=== PATIENT | male | born 1950 ===

== ENCOUNTER 2016-09-17 07:30 | Inpatient (IN) | payer MEDICARE ==
[2015-08-11 06:43] VITALS: BMI 28.3
[2016-09-23 07:29] LABS: HEMATOCRIT 46.1 % (42.0-52.0); MEAN CELL VOLUME 77.3 fL (80.0-105.0); MEAN CORPUSCULAR HEMOGLOBIN 25.3 pg (25.0-35.0); MEAN CORPUSCULAR HGB CONC 32.8 g/dl (31.0-37.0); RED CELL DISTRIBUTION WIDTH 14.1 % (11.5-14.5); WHITE BLOOD COUNT 7.8 10^3/ul (4.5-11.0)
[2016-09-23] MEDS ORDERED: Bupivacaine 0.5% Inj(30mL) ONE (07:35)
[2016-09-23] MEDS ORDERED: Iohexol 240 (50 ml) ONE (07:35)
[2016-09-23 07:43] LABS: BLOOD UREA NITROGEN 14 mg/dL (7-21); CALCIUM 10.1 mg/dL (8.4-10.5); CARBON DIOXIDE 24 mmol/L (21-33); CHLORIDE 103 mmol/L (98-107); GFR AFRICAN-AMERICAN > 60; GLUCOSE,RANDOM 93 mg/dL (70-110); POTASSIUM 3.6 mmol/L (3.6-5.0); SODIUM 141 mmol/L (132-148)
[2016-09-23 07:45] LABS: INR 1.08 (0.93-1.08); PARTIAL THROMBOPLASTIN TIME 28.9 Seconds (23.7-30.8)
[2016-09-23] MEDS ORDERED: Midazolam 2 MG/2 ML VIAL ONE (07:50)
[2016-09-23] MEDS ORDERED: Propofol 10 mg/ml Inj (20 ML) ONE (07:50)
[2016-09-23] MEDS ORDERED: Rocuronium 10 mg/ml (5 ml) ONE ×2 (07:51→09:22)
[2016-09-23] MEDS ORDERED: Phenylephrine 10 mg/ml Inj ONE (07:54)
[2016-09-23] MEDS ORDERED: metroNIDAZOLE IV 500 mg/100 ml 500 MG/100 ML BAG ONE (08:13)
[2016-09-23] MEDS ORDERED: Neostigmine Methylsulfate 3mg/3ml Syringe IV ONE (11:24)
[2016-09-23] MEDS ORDERED: Glycopyrrolate 0.2 mg/ml (2ml vial) ONE (11:24)
[2016-09-23] MEDS ORDERED: HYDROmorphone 0.5 mg/0.5 ml ISec IVP PRN (11:32)
[2016-09-23] MEDS ORDERED: Lactated Ringer's 1,000 ML IV SCH (11:32)
[2016-09-23] MEDS ORDERED: HYDROmorphone 0.5 mg/0.5 ml ISec ONE (12:19)
--- NOTE | 2016-09-23 12:52 | OP ---
PROCEDURE DATE: 09/23/2016 PREOPERATIVE DIAGNOSES: 1. Cholelithiasis and cholecystitis. 2. Sessile polyp in the ascending colon. PROCEDURE PERFORMED: 1. Laparoscopic cholecystectomy with intraoperative cholangiogram. 2. Laparoscopic right hemicolectomy. 3. Partial omentectomy. SURGEON: Dr. Harrison BROACHING MACHINE REPAIRER: Dr. Fernandez ANESTHESIOLOGIST: Dr. Salgado ANESTHESIA: General endotracheal anesthesia. ESTIMATED BLOOD LOSS: Minimal. SPECIMEN: Gallbladder with gallstones and right colon. INDICATION: The patient is a 66-year-old male who was seen in the office with complaints of chronic cholecystitis and cholelithiasis. The patient also had a colonoscopy revealing presence of a sessile polyp in the area of the cecum, which could not be excised endoscopically and was scheduled for righ t hemicolectomy. DESCRIPTION OF PROCEDURE: The patient was brought to the operating room and placed on the operating table in supine position. The patient was connected to EKG, blood pressure and pulse oximeter monito rs. The patient then underwent general endotracheal anesthesia and was prepped and draped in usual s terile fashion. First, timeout procedure took place when everybody in the room agreed as to the patient's identity, d iagnosis and procedure to be performed. Dr. Fernandez, who was the anesthesiologists' assistant, was present during the entire case and was assisting me gloriai jyothi with both laparoscopy and anastomosis creation after the laparoscopic procedure was completed an d as well as with closure of the wounds. His presence was essential to safe and prompt performance o f this procedure. The patient was originally placed in the lithotomy position in order to be able to do extreme Trendel enburg and reverse Trendelenburg for the colonoscopic colon resection. First, an incision was made v ertically just above the umbilicus and a Veress needle was inserted through that incision into the ab dominal cavity after the abdominal wall was elevated with 2 towel clips and pneumoperitoneum was obta ined. Once pneumoperitoneum was obtained, a 10-12 mm trocar was inserted through that incision and c areful evaluation of abdominal cavity revealed the presence of distended gallbladder with some adhesi ons of omentum to the gallbladder. I then placed a second 10 mm trocar in the subxiphoid position sl ightly to the left of the midline and proceeded with careful dissection of the infundibulum from the attachments of the omentum. Once this was done, the cystic duct was carefully dissected out and sepa rated from surrounding tissue and so was cystic artery. The cystic duct was clipped proximally. A s mall incision was made on the side of it and a cholangiogram catheter was inserted through that incis ion into the cystic duct. Now under direct visualization and fluoroscopy, the cholangiogram was obta ined, revealing prompt flow of dye into the entire biliary tree and emptying into the duodenum. Ther e was no indication of common bile duct stones. Now, the cystic duct was clipped distally and transected and the cystic artery was also clipped and t ransected. The gallbladder was carefully taken off liver bed using electrocautery. Once detached, i t was placed in the EndoCatch bag and removed through the periumbilical incision. Once completely re moved, the trocar was replaced back in its original position and I proceeded with careful dissection of the omentum off the proximal transverse colon. Once this was completed, the right colon was caref ully elevated with a grasper and the Harmonic scalpel was used in order to transect hepatocolic ligam ent. Once this was detached, the ____ space along the white line of Toldt was entered and the hepati c flexure was mobilized. Care was taken in order to avoid any injury to the duodenum, which was perf ectly visible. This dissection was carried through all the way down to the appendix, which was also detached from the underlying tissues and elevated. The terminal ileum, which was slightly attached t o the lateral wall of the abdomen with the congenital adhesion, was carefully detached and freed up f rom the wall. Now, the entire right colon appeared to be free floating with visible posterior struct ures intact including ureter and kidney. Now, the ileocolic artery was carefully grabbed as the ileo colic junction and straightened and carefully dissected out ____ space. Once from the surr ounding tissue, the artery was then transected using a vascular load on the Endo-LANIE. Once detached, the remaining portion of the mesentery of the colon was detached from the posterior retroperitoneal structures and freed up. The mesentery leading towards the first 10 cm of terminal ileum was transec judith using Harmonic scalpel and the small bowel was cleared to be ready for anastomosis. Again, the s syed thing was done for the mesentery of the proximal transverse colon, which was also transected all the way down to the wall of the colon in order to prepare it for the anastomosis. The posterior stru ctures were now irrigated with saline and irrigant fluid was suctioned out. There was no bleeding no judith. The incision and the periumbilical incision was extended to about 6 cm in order to be able to p ut a wound protector and bring out the cecum with the terminal ileum and the right colon all the way to the proximal transverse colon. Using Endo-LANIE, both colon and terminal ileum were transected and the ends were put together using a standard [id number] anastomosis between the ileum and transverse colon using LANIE stapler and a TA stapler. Once the anastomosis was created, there was a stitch plac ed in the crotch of this anastomosis in order to strengthen it. Now, the bowel was returned into the abdominal cavity and covered with omentum. A portion of omentum was also resected as it was noted t o be ischemic. Now, once this was all returned to the abdominal cavity, I proceeded with removal of the ports, evalu ated the intra-abdominal exit site of the ports and there was no bleeding. The abdominal cavity was then copiously irrigated and all the irrigant fluid was suctioned out and midline incision of about 6 cm was now closed using #1 PDS in a running fashion and subcutaneous tissues were closed using 3-0 V icryl and skin was closed using 4-0 Monocryl. In a similar fashion, the left lower quadrant as well as the subxiphoid trocar incisions were closed and all the wounds were covered with sterile Dermabond dressing. The patient then was awakened, extubated and transferred to the recovery room for further observation. Hernando Harrison MD cc: [id number] TT: 09/23/2016 12:51:41 sn
--- NOTE | 2016-09-23 13:05 | RAD ---
HISTORY: R/O FB COMPARISON: No prior. FINDINGS: BOWEL: Normal. No obstruction. No free air. BONES: Normal. OTHER FINDINGS: None. IMPRESSION: No evidence of foreign body
[2016-09-23] MEDS ORDERED: cefOXitin 2 GM in Sodium Chloride 0.9% 100 ML IV SCH (13:15)
--- NOTE | 2016-09-23 13:21 | PCM.SURG1 ---
Surgeon's Initial Post Op Note - Surgeon's Notes Surgeon: Hunter Filter Press Tender Head: Jim Type of Anesthesia: General Endo Pre-Operative Diagnosis: Cholelithiasis, cholecystitis, Sessile polyp in ascending colon Operative Findings: see op note Post-Operative Diagnosis: Cholelithiasis, cholecystitis, Sessile polyp in ascending colon Operation Performed: 1. Laparoscopic cholecystectomy with IOC. 2. Laparoscopic R hemicolectomy. 3. Partial omentectomy Specimen/Specimens Removed: R colon, gallbladder, omentum Estimated Blood Loss: EBL {In ML}: 50 Blood Products Given: N/A Drains Used: No Drains Post-Op Condition: Good Date of Surgery/Procedure: 09/23/16 Time of Surgery/Procedure: 08:00
--- NOTE | 2016-09-23 13:53 | RAD ---
PROCEDURE: Operative cholangiogram HISTORY: R/O OBSTRUCTION COMPARISON: TECHNIQUE: Fluoroscopy was provided in the operating room. Four images were submitted FINDINGS: The common duct is normal in caliber. There are no filling defects. Contrast flows into the duodenum without obstruction IMPRESSION: As above
[2016-09-23] MEDS ORDERED: metroNIDAZOLE IV 500 mg/100 ml 500 MG/100 ML BAG IVPB SCH (14:00)
[2016-09-23] MEDS: cefOXitin 2 GM in Sodium Chloride 0.9% 100 ML IV SCH (16:30)
[2016-09-23] MEDS: metroNIDAZOLE IV 500 mg/100 ml 500 MG/100 ML BAG IVPB SCH (16:31)
[2016-09-23] MEDS: HYDROmorphone 1 mg/ml ISec IVP PRN (20:10)
[2016-09-24] MEDS: metroNIDAZOLE IV 500 mg/100 ml 500 MG/100 ML BAG IVPB SCH (00:32)
[2016-09-24] MEDS: Lactated Ringer's 1,000 ML IV SCH ×3 (00:35→15:49)
[2016-09-24] MEDS: cefOXitin 2 GM in Sodium Chloride 0.9% 100 ML IV SCH (00:44)
[2016-09-24] MEDS: HYDROmorphone 1 mg/ml ISec IVP PRN ×6 (01:25→20:10)
[2016-09-24 07:18] LABS: ADD MANUAL DIFF? NO
[2016-09-24 07:25] LABS: BASO # 0.01 K/mm3 (0.0-2.0); BASO % 0.1 % (0.0-3.0); EOS % 0.1 % (1.5-5.0); GRAN # 12.03 (1.4-6.5); GRAN % 80.8 % (50.0-68.0); HEMATOCRIT 41.3 % (42.0-52.0); LYMPH # 1.4 (1.2-3.4); LYMPH % 9.2 % (22.0-35.0); MEAN CELL VOLUME 78.2 fL (80.0-105.0); MEAN CORPUSCULAR HEMOGLOBIN 24.8 pg (25.0-35.0); MEAN CORPUSCULAR HGB CONC 31.7 g/dl (31.0-37.0); MEAN PLATELET VOLUME 10.2 fl (7.0-11.0); MONO # 1.5 (0.1-0.6); MONO % 9.8 % (1.0-6.0); PLATELET COUNT 274 10^3/uL (120.0-450.0); RED CELL DISTRIBUTION WIDTH 14.4 % (11.5-14.5); WHITE BLOOD COUNT 14.9 10^3/ul (4.5-11.0)
--- NOTE | 2016-09-24 07:42 | CP.PCM.PN ---
<Mundo Marquez - Last Filed: 09/25/16 07:17> Subjective - Date & Time of Evaluation Date of Evaluation: 09/24/16 Time of Evaluation: 07:39 - Subjective Subjective: General surgery progress note for Dr. Harrison - Mundo Marquez PGY1 Patient seen and examined at bedside this morning with the surgical team. No acute overnight issues or new complaints. He is s/p cholecystectomy, laproscopic right hemicolectomy, POD #1. Doing well post-op. Plan for today is OOB to chair, incentive spirometry, d/c vo, encourage ambulation as tolerated. Denies chest pain, palpitations, SOB. Objective - Vital Signs/Intake and Output Vital Signs (last 24 hours): Temp Pulse Resp BP Pulse Ox 98.5 F 50 L 18 129/75 95 09/23/16 19:15 09/23/16 19:15 09/23/16 19:15 09/23/16 19:15 09/23/16 16:00 Intake and Output: 09/24/16 09/24/16 06:59 18:59 Intake Total 120 Output Total 1450 Balance -1330 - Medications Medications: Current Medications Amlodipine Besylate (Norvasc) 2.5 mg PO DAILY [facility] Aspirin (Ecotrin) 81 mg PO DAILY [facility] Enoxaparin Sodium (Lovenox) 40 mg SC DAILY [facility] PRN Reason: Protocol Fenofibrate (Tricor) 145 mg PO DAILY [facility] Hydrochlorothiazide (Microzide) 12.5 mg PO DAILY [facility] Hydromorphone HCl (Dilaudid) 1 mg IVP Q4H PRN PRN Reason: Pain, moderate (4-7) Last Admin: 09/24/16 06:03 Dose: 1 mg Lactated Ringer's (Lactated Ringer's) 1,000 mls @ 100 mls/hr IV .Q10H [facility] Last Admin: 09/24/16 06:05 Dose: 100 mls/hr Losartan Potassium (Cozaar) 100 mg PO DAILY [facility] Ondansetron HCl (Zofran Inj) 4 mg IVP Q4H PRN PRN Reason: Nausea/Vomiting Sertraline HCl (Zoloft) 12.5 mg PO DAILY [facility] - Labs Labs: 09/24/16 07:00 09/23/16 07:46 PT 11.7 Seconds (9.9-11.8) 09/23/16 07:09 INR 1.08 (0.93-1.08) 09/23/16 07:09 APTT 28.9 Seconds (23.7-30.8) 09/23/16 07:09 - Constitutional Appears: Non-toxic, No Acute Distress - Head Exam Head Exam: ATRAUMATIC, NORMAL INSPECTION, NORMOCEPHALIC - Eye Exam Eye Exam: EOMI, PERRL - ENT Exam ENT Exam: Mucous Membranes Moist - Neck Exam Neck Exam: Normal Inspection - Respiratory Exam Respiratory Exam: Clear to Ausculation Bilateral. absent: Rales, Rhonchi, Wheezes - Cardiovascular Exam Cardiovascular Exam: RRR, +S1, +S2. absent: Gallop, Rubs, Murmur - GI/Abdominal Exam GI & Abdominal Exam: Soft, Tenderness. absent: Distended, Firm, Guarding, Rigid , Rebound Additional comments: surgical site clean, dry, intact, no erythema - Extremities Exam Extremities Exam: Normal Inspection - Neurological Exam Neurological Exam: Alert, Awake, Oriented x3 - Psychiatric Exam Psychiatric exam: Normal Affect, Normal Mood - Skin Skin Exam: Dry, Intact, Normal Color, Warm Assessment and Plan - Assessment and Plan (Free Text) Plan: 66yo male with history of hypertension, cholelithiasis, sessile polyp in ascending colon s/p cholecystectomy, right hemicolectomy -POD #1; no acute overnight issues -afebrile, leukocytosis likely reactive -OOB to chair -AE Hose -D/C vo -Incentive spirometry -Encourage ambulation as tolerated -Liquid diet, will advance as tolerated Patient seen and case discussed with attending, Dr. Harrison <Hernando Harrison - Last Filed: 09/25/16 11:28> Objective - Vital Signs/Intake and Output Vital Signs (last 24 hours): Temp Pulse Resp BP Pulse Ox 98.8 F 76 20 164/94 H 94 L 09/25/16 08:00 09/25/16 08:00 09/25/16 08:00 09/25/16 09:38 09/25/16 08:00 Intake and Output: 09/25/16 09/25/16 06:59 18:59 Intake Total 2400 Output Total 1750 Balance 650 - Medications Medications: Current Medications Alprazolam (Xanax) 0.25 mg PO Q8 PRN; Protocol PRN Reason: Anxiety Stop: 10/01/16 22:01 Amlodipine Besylate (Norvasc) 2.5 mg PO DAILY [facility]CLUDES [facility] Last Admin: 09/25/16 09:38 Dose: 2.5 mg Aspirin (Ecotrin) 81 mg PO DAILY [facility]CLUD[facility] Last Admin: 09/25/16 09:37 Dose: 81 mg Enoxaparin Sodium (Lovenox) 40 mg SC DAILY [facility]CLUD[facility] PRN Reason: Protocol Last Admin: 09/25/16 09:40 Dose: 40 mg Fenofibrate (Tricor) 145 mg PO DAILY [facility]CLUD[facility] Last Admin: 09/25/16 09:38 Dose: 145 mg Hydrochlorothiazide (Microzide) 12.5 mg PO DAILY [facility]CLUD[facility] Last Admin: 09/25/16 09:39 Dose: 12.5 mg Hydromorphone HCl (Dilaudid) 1 mg IVP Q3H PRN PRN Reason: Pain, moderate (4-7) Last Admin: 09/25/16 09:40 Dose: 1 mg Losartan Potassium (Cozaar) 100 mg PO DAILY [facility]CLUD[facility] Last Admin: 09/25/16 09:37 Dose: 100 mg Ondansetron HCl (Zofran Inj) 4 mg IVP Q4H PRN PRN Reason: Nausea/Vomiting Sertraline HCl (Zoloft) 12.5 mg PO DAILY [facility]CLUD[facility] Last Admin: 09/25/16 09:35 Dose: 12.5 mg - Labs Labs: 09/25/16 07:00 09/24/16 07:00 PT 11.7 Seconds (9.9-11.8) 09/23/16 07:09 INR 1.08 (0.93-1.08) 09/23/16 07:09 APTT 28.9 Seconds (23.7-30.8) 09/23/16 07:09 Assessment and Plan - Assessment and Plan (Free Text) Assessment: Patient was seen, evaluated and examined by me. I agree with the assessment and plan as per the resident's note.
[2016-09-24 07:44] LABS: BLOOD UREA NITROGEN 16 mg/dL (7-21); CALCIUM 9.2 mg/dL (8.4-10.5); CARBON DIOXIDE 25 mmol/L (21-33); CHLORIDE 104 mmol/L (98-107); GFR AFRICAN-AMERICAN > 60; GLUCOSE,RANDOM 102 mg/dL (70-110); POTASSIUM 4.4 mmol/L (3.6-5.0); SODIUM 141 mmol/L (132-148)
[2016-09-24 08:48] VITALS: RESP 20
[2016-09-24] MEDS ORDERED: Non Formulary Medication (Losartan/Hydrochlorothiazide [Losartan-Hctz 100-12.5 Mg Tab] 1 T PO SCH (10:00)
[2016-09-24] MEDS: Enoxaparin 40 mg Syringe SC SCH (10:17)
--- NOTE | 2016-09-24 10:41 | CON ---
DATE: 09/24/2016 REASON FOR CONSULTATION: Management of patient's chronic problems of hypertension and hyperlipidemia. The patient is a 66-year-old male with cholelithiasis and right cecum polyp who underwent laparoscopic cholecystectomy and right hemicolectomy. The patient has history of hypertension, hyperlipidemia and anxiety with depression. The patient is feeling well this morning. He denies any chest pain, shortness of breath. He has some abdominal discomfort at surgical site. The patient tolerated liquid diet this morning. PAST MEDICAL HISTORY: Hypertension, hyperlipidemia, anxiety with depression. CURRENT MEDICATIONS: Amlodipine 2.5 mg daily, losartan HCT 100/12.5 daily, Tricor 145 mg daily, aspirin 81 mg daily and Zoloft 12.5 mg daily. ALLERGIES: The patient has no known allergies. Denies any previous surgical history. FAMILY HISTORY: Noncontributory. SOCIAL HISTORY: Ex-smoker, quit 20 years ago. Denies any alcohol or drug use. The patient is retired. He lives with his . He is independent of activities of daily living. REVIEW OF SYSTEMS: Denies any weight loss, fever, dysphagia, sore throat. He denies any cough, chest congestion or wheezing. He denies any chest pain, palpitation. The patient complains of abdominal pain after surgery. Denies any vomiting, nausea, diarrhea, rectal bleeding. He denies any dysuria or hematuria. The patient denies any neurological symptoms as headache, weakness, numbness, blurry vision. The patient has a history of anxiety, but well controlled with present treatment. PHYSICAL EXAMINATION: VITAL SIGNS: Stable, temperature 98, pulse 70, blood pressure 144/86 , respiratory rate 20, oxygen saturation is 100% on room air. GENERAL: The patient is comfortable in bed, alert, awake, oriented to place, person and time. HEENT: Head is normocephalic, atraumatic. Oral mucosa is moist. NECK: Supple. LUNGS: Clear to auscultation. HEART: With regular rhythm and rate. ABDOMEN: Soft. There is some tenderness around laparoscopy site. Bowel sounds diminished, but audible. EXTREMITIES: With no edema, cyanosis or clubbing. LABORATORY TESTS: This morning, CBC with WBC 14.9, hemoglobin 13.1, hematocrit 41.3, and platelet count 274,000. Chemistry with normal electrolytes and normal renal function. ASSESSMENT: 1. A 66-year-old male with history of hypertension, hyperlipidemia, cholelithiasis and colonic polyps, status post laparoscopic cholecystectomy and right hemicolectomy, day 1. 2. Hypertension, stable. 3. Hyperlipidemia. PLAN OF TREATMENT: Routine postoperative care with pain medication. Started on clear liquid diet. We will monitor closely for any abdominal pains or vomiting. Out of bed and ambulation. The patient will be maintained on his chronic medications, losartan, sertraline, amlodipine. Deep venous thrombosis prevention with Lovenox. Lottie Gandhi MD cc: [id number] TT: 09/24/2016 10:40:46 Confirmation # [id number] Dictation # [id number] en MTDD
[2016-09-25] MEDS: HYDROmorphone 1 mg/ml ISec IVP PRN ×3 (00:10→09:40)
[2016-09-25] MEDS: Lactated Ringer's 1,000 ML IV SCH (02:30)
[2016-09-25 07:41] LABS: ADD MANUAL DIFF? NO
[2016-09-25 07:55] LABS: BASO # 0.02 K/mm3 (0.0-2.0); BASO % 0.2 % (0.0-3.0); EOS # 0.3 (0.0-0.7); EOS % 2.2 % (1.5-5.0); GRAN # 9.08 (1.4-6.5); GRAN % 75.1 % (50.0-68.0); HEMATOCRIT 40.3 % (42.0-52.0); LYMPH # 1.5 (1.2-3.4); LYMPH % 12.3 % (22.0-35.0); MEAN CELL VOLUME 78.1 fL (80.0-105.0); MEAN PLATELET VOLUME 10.4 fl (7.0-11.0); MONO # 1.2 (0.1-0.6); MONO % 10.2 % (1.0-6.0); PLATELET COUNT 248 10^3/uL (120.0-450.0); RED CELL DISTRIBUTION WIDTH 14.2 % (11.5-14.5); WHITE BLOOD COUNT 12.1 10^3/ul (4.5-11.0)
[2016-09-25] MEDS ORDERED: Sodium Chloride 0.9% 1,000 ML IV SCH (08:45)
[2016-09-25] MEDS: Enoxaparin 40 mg Syringe SC SCH (09:40)
--- NOTE | 2016-09-25 11:35 | CP.PCM.PN ---
Subjective - Date & Time of Evaluation Date of Evaluation: 09/25/16 Time of Evaluation: 07:00 - Subjective Subjective: Surgery: Dr. Harrison Pt seen and examined. No acute overnight events. States he feels better and pain is well controlled. Admits to tolerating liquids, denies flatus or BM. Denies N/V, F/C. Objective - Vital Signs/Intake and Output Vital Signs (last 24 hours): Temp Pulse Resp BP Pulse Ox 98.8 F 76 20 164/94 H 94 L 09/25/16 08:00 09/25/16 08:00 09/25/16 08:00 09/25/16 09:38 09/25/16 08:00 Intake and Output: 09/25/16 09/25/16 06:59 18:59 Intake Total 2400 Output Total 1750 Balance 650 - Medications Medications: Current Medications Alprazolam (Xanax) 0.25 mg PO Q8 PRN; Protocol PRN Reason: Anxiety Stop: 10/01/16 22:01 Amlodipine Besylate (Norvasc) 2.5 mg PO DAILY [facility] Last Admin: 09/25/16 09:38 Dose: 2.5 mg Aspirin (Ecotrin) 81 mg PO DAILY [facility] Last Admin: 09/25/16 09:37 Dose: 81 mg Enoxaparin Sodium (Lovenox) 40 mg SC DAILY [facility] PRN Reason: Protocol Last Admin: 09/25/16 09:40 Dose: 40 mg Fenofibrate (Tricor) 145 mg PO DAILY [facility] Last Admin: 09/25/16 09:38 Dose: 145 mg Hydrochlorothiazide (Microzide) 12.5 mg PO DAILY [facility] Last Admin: 09/25/16 09:39 Dose: 12.5 mg Hydromorphone HCl (Dilaudid) 1 mg IVP Q3H PRN PRN Reason: Pain, moderate (4-7) Last Admin: 09/25/16 09:40 Dose: 1 mg Losartan Potassium (Cozaar) 100 mg PO DAILY [facility] Last Admin: 09/25/16 09:37 Dose: 100 mg Ondansetron HCl (Zofran Inj) 4 mg IVP Q4H PRN PRN Reason: Nausea/Vomiting Sertraline HCl (Zoloft) 12.5 mg PO DAILY [facility] Last Admin: 09/25/16 09:35 Dose: 12.5 mg - Labs Labs: 09/25/16 07:00 09/24/16 07:00 PT 11.7 Seconds (9.9-11.8) 09/23/16 07:09 INR 1.08 (0.93-1.08) 09/23/16 07:09 APTT 28.9 Seconds (23.7-30.8) 09/23/16 07:09 - Constitutional Appears: Well, No Acute Distress - Head Exam Head Exam: ATRAUMATIC, NORMOCEPHALIC - ENT Exam ENT Exam: Mucous Membranes Moist - Respiratory Exam Respiratory Exam: NORMAL BREATHING PATTERN - Cardiovascular Exam Cardiovascular Exam: RRR - GI/Abdominal Exam GI & Abdominal Exam: Soft, Tenderness (around midline incision ). absent: Distended, Guarding - Extremities Exam Extremities Exam: Full ROM - Neurological Exam Neurological Exam: Alert, Awake, Oriented x3 - Skin Skin Exam: Dry, Intact, Warm Assessment and Plan - Assessment and Plan (Free Text) Assessment: 66M s/p laparoscopic R hemicolectomy and lap jaya; POD#2 Plan: - advance to reg diet - encourage ambulation - encourage incentive spirometer - d/w Dr. Hunter Reis, PGY-2 Surgery
[2016-09-25] MEDS ORDERED: Oxycodone/Acetaminophen 5/325 mg Tab PO PRN (11:38)
[2016-09-25] MEDS ORDERED: HYDROmorphone 0.5 mg/0.5 ml ISec IVP PRN (11:39)
[2016-09-25 17:36] VITALS: BP 168/93; PULSE 85; TEMP 98.5; O2SAT 95
--- NOTE | 2016-09-25 18:55 | PN ---
DATE: 09/25/2016 The patient is status post laparoscopic cholecystectomy and right hemicolectomy day 2. The patient is doing well. He is tolerating regular diet. He just had a small bowel movement. He is ambulating. PHYSICAL EXAMINATION: VITAL SIGNS: Stable. Temperature 98.5, pulse 85, blood pressure 143/93, respiratory rate 95, respiratory rate 20, and oxygen saturation 95% on room air. GENERAL: He is comfortable sitting in chair, alert, awake, oriented. HEENT: Head is normocephalic, atraumatic. Oral mucosa is moist. NECK: Supple. LUNGS: With decreased breath sounds in bases. HEART: Regular rhythm and rate. ABDOMEN: Soft. Some tenderness in the surgical wound site. Bowel sounds are positive. EXTREMITIES: With no edema. LABORATORY DATA: CBC this morning, WBC 12.1, hemoglobin 12.9, hematocrit 40.3. ASSESSMENT: 1. Status post laparoscopic cholecystectomy and right hemicolectomy, day 2. History of choledocholithiasis and colonic polyp. 2. Hypertension. 3. Hyperlipidemia. PLAN OF TREATMENT: We will continue close monitoring. We will continue Percocet for pain management , heparin for DVT prophylaxis. Encourage ambulation.Patient will maintain his chronic medications Losartan, Sertraline and Lovastatin when discharged home today. He was advised to see PCP next week. Lottie Gandhi MD cc: [id number] TT: 09/25/2016 18:54:12 Confirmation # [id number] Dictation # [id number] shazia KENYON
[2016-09-27 10:26] LABS: ALB/GLOB RATIO 1.1 (1.1-1.8); ALKALINE PHOSPHATASE 69 U/L (38-133); ALT/SGPT 65 U/L (7-56); AST/SGOT 48 U/L (15-59); BILIRUBIN,TOTAL 1.1 mg/dL (0.2-1.3); BLOOD UREA NITROGEN 13 mg/dL (7-21); CALCIUM 10.2 mg/dL (8.4-10.5); CARBON DIOXIDE 29 mmol/L (21-33); CHLORIDE 99 mmol/L (98-107); GFR AFRICAN-AMERICAN > 60; GLUCOSE,RANDOM 92 mg/dL (70-110); MAGNESIUM 1.8 mg/dL (1.7-2.2); PHOSPHOROUS 2.2 mg/dL (2.5-4.5); POTASSIUM 3.8 mmol/L (3.6-5.0); SODIUM 139 mmol/L (132-148); TOTAL PROTEIN 7.6 g/dL (5.8-8.3)
[2016-09-27 12:10] LABS: HEMATOCRIT 43.4 % (42.0-52.0); MEAN CELL VOLUME 78.1 fL (80.0-105.0); MEAN CORPUSCULAR HEMOGLOBIN 25.7 pg (25.0-35.0); MEAN CORPUSCULAR HGB CONC 32.9 g/dl (31.0-37.0); MEAN PLATELET VOLUME 10.8 fl (7.0-11.0); WHITE BLOOD COUNT 11.5 10^3/ul (4.5-11.0)
--- NOTE | 2016-09-27 13:11 | CP.PCM.DIS ---
Provider - Provider Date of Admission: 09/23/16 06:51 Attending physician: Hernando Harrison MD Primary care physician: Lottie Piedra MD Consults: Dr. Piedra - Time Spent in preparation of Discharge (in minutes): 45 Diagnosis - Discharge Diagnosis (1) Cholestasis Status: Acute (2) Cholecystitis Status: Acute (3) Sessile colonic polyp Status: Acute Hospital Course - Lab Results Lab Results: Most Recent Lab Values WBC 11.5 10^3/ul (4.5-11.0) H 09/26/16 07:00 RBC 5.56 10^6/uL (3.5-6.1) 09/26/16 07:00 Hgb 14.3 gm/dL (14.0-18.0) 09/26/16 07:00 Hct 43.4 % (42.0-52.0) 09/26/16 07:00 MCV 78.1 fL (80.0-105.0) L 09/26/16 07:00 MCH 25.7 pg (25.0-35.0) 09/26/16 07:00 MCHC 32.9 g/dl (31.0-37.0) 09/26/16 07:00 RDW 14.0 % (11.5-14.5) 09/26/16 07:00 Plt Count 319 10^3/uL (120.0-450.0) 09/26/16 07:00 MPV 10.8 fl (7.0-11.0) 09/26/16 07:00 Gran % 75.1 % (50.0-68.0) H 09/25/16 07:00 Lymph % (Auto) 12.3 % (22.0-35.0) L 09/25/16 07:00 [place] % (Auto) 10.2 % (1.0-6.0) H 09/25/16 07:00 Eos % (Auto) 2.2 % (1.5-5.0) 09/25/16 07:00 Baso % (Auto) 0.2 % (0.0-3.0) 09/25/16 07:00 Gran # 9.08 (1.4-6.5) H 09/25/16 07:00 Lymph # 1.5 (1.2-3.4) 09/25/16 07:00 [place] # 1.2 (0.1-0.6) H 09/25/16 07:00 Eos # 0.3 (0.0-0.7) 09/25/16 07:00 Baso # 0.02 K/mm3 (0.0-2.0) 09/25/16 07:00 PT 11.7 Seconds (9.9-11.8) 09/23/16 07:09 INR 1.08 (0.93-1.08) 09/23/16 07:09 APTT 28.9 Seconds (23.7-30.8) 09/23/16 07:09 Sodium 139 mmol/L (132-148) 09/26/16 07:00 Potassium 3.8 mmol/L (3.6-5.0) 09/26/16 07:00 Chloride 99 mmol/L (98-107) 09/26/16 07:00 Carbon Dioxide 29 mmol/L (21-33) 09/26/16 07:00 Anion Gap 15 (10-20) 09/26/16 07:00 BUN 13 mg/dL (7-21) 09/26/16 07:00 Creatinine 0.9 mg/dL (0.5-1.4) 09/26/16 07:00 Est GFR ( Amer) > 60 09/26/16 07:00 Est GFR (Non-Af Amer) > 60 09/26/16 07:00 Random Glucose 92 mg/dL (70-110) 09/26/16 07:00 Calcium 10.2 mg/dL (8.4-10.5) 09/26/16 07:00 Phosphorus 2.2 mg/dL (2.5-4.5) L 09/26/16 07:00 Magnesium 1.8 mg/dL (1.7-2.2) 09/26/16 07:00 Total Bilirubin 1.1 mg/dL (0.2-1.3) 09/26/16 07:00 AST 48 U/L (15-59) 09/26/16 07:00 ALT 65 U/L (7-56) H 09/26/16 07:00 Alkaline Phosphatase 69 U/L (38-133) 09/26/16 07:00 Total Protein 7.6 g/dL (5.8-8.3) 09/26/16 07:00 Albumin 4.0 g/dL (3.0-4.8) 09/26/16 07:00 Globulin 3.6 gm/dL 09/26/16 07:00 Albumin/Globulin Ratio 1.1 (1.1-1.8) 09/26/16 07:00 Blood Type A POSITIVE 09/23/16 07:01 Antibody Screen Negative 09/23/16 07:01 BBK History Checked Patient has bt 09/23/16 07:01 - Hospital Course Hospital Course: Discharge Summary for General Surgery, Dr. Eckert, Chilo Harris, PGY-1 66 M with PMHx of HTN, HLD, anxiety and depression presented to [facility] [place] with cholestasis and right sessile polyp of ascending colon. Pt was admitted on and and scheduled for surgery on 09/23/16. Pt underwent 1. Laparoscopic cholecystectomy with IOC. 2. Laparoscopic R hemicolectomy. 3. Partial omentectomy. POD #1, Pt was doing well and advised to start ambulating OOB to chair. He was educated and instructed on how to use incentive spirometry. Lewis was d/c'ed. AE hose in place. Pt was also advanced to CLD. Pt's pain was well controlled. POD#2, pt admitted to tolerating liquids, denied flatus or BM. Denies N/V, F/C. Pt was advanced to regular diet to which he tolerated. Pt encouraged to ambulate and continue using incentive spirometer. Pt was d/c'ed on 09/26/16. Pt was afebrile, denied any acute complaints, Denied fever, chills, abdominal pain, n/v. Pt has good uop. Upon dc pt is to follow up with Dr. Petty within 1-2 weeks. Discharge Exam - Head Exam Head Exam: ATRAUMATIC, NORMOCEPHALIC - Eye Exam Eye Exam: EOMI, Normal appearance, PERRL Pupil Exam: NORMAL ACCOMODATION, PERRL - ENT Exam ENT Exam: Mucous Membranes Moist - Respiratory Exam Respiratory Exam: Clear to PA & Lateral, NORMAL BREATHING PATTERN - Cardiovascular Exam Cardiovascular Exam: RRR, +S1, +S2 - GI/Abdominal Exam GI & Abdominal Exam: Normal Bowel Sounds, Soft. absent: Distended, Tenderness - Extremities Exam Extremities exam: normal inspection - Neurological Exam Neurological exam: Alert, CN II-XII Intact, Normal Gait, Oriented x3, Reflexes Normal - Psychiatric Exam Psychiatric exam: Normal Affect, Normal Mood - Skin Skin Exam: Dry, Intact, Normal Color, Warm Discharge Plan - Follow Up Plan Condition: GOOD Disposition: HOME/ ROUTINE Referrals: Lottie Gandhi MD [Primary Care Provider] -
== END 2016-09-26 18:45 | disposition home or self-care (01) | DRG 419 ==
LOC: EDSTATUS 07:30 → SDAINP 09-23 06:51 → 5RSO 09-23 13:50
PROVIDERS: ADMIT General Practice; ATTEND General Practice
PROC: 0DBS4ZZ (ICD-10-PCS; 2016-09-23)
PROC: BF10YZZ Fluoroscopy of Bile Ducts using Other Contrast (ICD-10-PCS; 2016-09-23)
PROC: 0DTF4ZZ Resection of Right Large Intestine, Percutaneous Endoscopic Approach (ICD-10-PCS; principal; 2016-09-23 07:30)
PROC: 0FT44ZZ Resection of Gallbladder, Percutaneous Endoscopic Approach (ICD-10-PCS; 2016-09-23 07:30)
DX: K80.11 Calculus of gallbladder with chronic cholecystitis with obstruction (principal); I10 Essential (primary) hypertension; D12.0 Benign neoplasm of cecum; D12.2 Benign neoplasm of ascending colon; E78.5 Hyperlipidemia, unspecified; Z87.891 Personal history of nicotine dependence

== ENCOUNTER 2018-06-03 08:23 | Outpatient (CLI) | payer MEDICARE | END 2018-06-03 08:24 | disposition home or self-care (01) | LOC: CARDIO 08:23 ==